=== PATIENT | female | born 1985 | race Caucasian/White ===

== ENCOUNTER → 2017-09-02 14:41 | Outpatient (CLI) | payer OTHER, MEDICAID, SELFPAY ==
--- NOTE | 2017-09-02 14:42 | US_ITS ---
US transvaginal HISTORY: ITS.REASON: Pelvic pain ORDERING PHYSICIAN: Bola Alex MD PATIENT AGE: 32 years COMPARISON: None FINDINGS: There has been a prior hysterectomy. The vaginal cuff has an unremarkable appearance. The left ovary is enlarged at 5.6 x 4.5 cm and has a somewhat lacy appearance and may be related to an endometrioma. Differential diagnosis includes hemorrhagic ovarian cyst. The right ovary measures 3.8 x 2.5 cm and contains small follicles. No cul-de-sac fluid is evident. IMPRESSION: Enlarged left ovary possibly related to a endometrioma or hemorrhagic ovarian cyst. Follow-up recommended to confirm resolution as neoplasm would be included in the differential diagnosis.
== END ==
PROVIDERS: PCP Internal Medicine Adolescent Medicine; Visit Provider Obstetrics & Gynecology
DX: R10.2 Pelvic and perineal pain (principal); N83.9 Noninflammatory disorder of ovary, fallopian tube and broad ligament, unspecified
CPT/HCPCS: 76830

== ENCOUNTER → 2017-09-09 14:01 | Outpatient (CLI) | payer SELFPAY ==
[2017-09-11 06:40] LABS: Cancer Antigen (CA) 125 6.9 U/mL (0.0-38.1)
== END ==
PROVIDERS: PCP Internal Medicine Adolescent Medicine; Visit Provider Obstetrics & Gynecology
DX: N83.9 Noninflammatory disorder of ovary, fallopian tube and broad ligament, unspecified (principal); R10.2 Pelvic and perineal pain
CPT/HCPCS: 36415; 86316

== ENCOUNTER → 2017-09-19 17:16 | Outpatient (CLI) | payer SELFPAY ==
[2017-09-19 17:20] LABS: Microscopic, Urine URINE MICROSCOPIC (MICROSCOPIC)
[2017-09-19 18:01] LABS: Appearance,Urine CLEAR (Clear); Basophils % 0.2 % (0.1-2.0); Bilirubin,Urine Negative (Negative); Blood, Urine Negative (Negative); Color,Urine YELLOW (Yellow); Eosinophils # 0.1 K/mm3 (0.0-0.4); Eosinophils % 2.4 % (0.1-12.0); Glucose,Urine (UA) Negative (Negative); Hematocrit 42.7 % (37.0-47.0); Ketones,Urine Negative (Negative); Leukocyte Esterase,Urine Negative (Negative); Lymphocytes # 1.8 K/mm3 (0.7-4.5); Lymphocytes % 42.6 K/mm3 (10-50); Mean Corpuscular HGB Conc 32.9 g/dL (31.8-35.4); Mean Corpuscular Volume 94.4 fl (81-99); Mean Platelet Volume 7.2 fl (7.4-10.4); Monocytes # 0.4 K/mm3 (0.1-1.0); Monocytes % 8.6 % (1.7-9.3); Neutrophils % 46.3 % (37.0-80.0); Nitrate,Urine Negative (Negative); Platelet Count 277 K/mm3 (142-424); Protein,Urine Negative (Negative); Red Blood Count 4.52 M/mm3 (4.20-5.40); White Blood Count 4.2 K/mm3 (4.8-10.8)
[2017-09-19 18:10] LABS: Bacteria,Urine 1+ /lpf; Mucus,Urine 3+ /lpf; Squamous Epithelial Cell,Urine Occasional #/hpf (0-5); WBC,Urine Occasional #/hpf (0-3)
[2017-09-19 20:37] LABS: Alanine Aminotransferase 61 U/L (12-78); Albumin Level 3.8 gm/dL (3.4-5.0); Albumin/Globulin Ratio 1.2 (1.1-1.8); Alkaline Phosphatase 103 U/L (46-116); Anion Gap 10.2 mEq/L (5-15); Aspartate Amino Transferase 38 U/L (15-37); Bilirubin,Total 0.3 mg/dL (0.2-1.0); Blood Urea Nitrogen 9 mg/dL (7-18); Calcium 8.6 mg/dL (8.5-10.1); Carbon Dioxide 31 mmol/L (21.0-32.0); Chloride 106 mmol/L (98-107); Creatinine,Serum 0.58 mg/dL (0.55-1.02); Estimated Glomerular Filt Rate 120 ml/min (>60); GFR (African American) 145 ML/MIN (>60); Globulin 3.2 gm/dl (1.3-3.2); Glucose 73 mg/dL (74-106); Potassium 4.2 mmoL/L (3.5-5.1); Sodium 143 mmol/L (136-145)
== END ==
PROVIDERS: PCP Internal Medicine Adolescent Medicine; Visit Provider Obstetrics & Gynecology
DX: N83.9 Noninflammatory disorder of ovary, fallopian tube and broad ligament, unspecified (principal); Z01.818 Encounter for other preprocedural examination
CPT/HCPCS: 36415; 80053; 81001; 85025

== ENCOUNTER 2017-09-23 06:20 | Inpatient (IN) | payer OTHER, SELFPAY ==
[2017-09-20 08:49] VITALS: BMI 19.1
[2017-09-23] VITALS (29 sets, daily range): BP systolic 75–110; BP diastolic 30–69; PULSE 42–81; RESP 16–25; TEMP 36.3–37.6; O2SAT 97–100
--- NOTE | 2017-09-23 07:09 | P.PN_ITS ---
[facility] Anesthesia Checklist - Structural Data Admitted From: Home Planned Operative Procedure/s: dx lap, bso Consent for Planned Operative Procedure(s) Verified: Yes Verified Documents: Surgical Consent - NPO Status Verified Time NPO: 11:23 - Airway Assessment C-Spine Mobility Assessed: Yes TMJ Mobility Assessed: Yes Dentition: Dentures-good fit - Neurological Assessment Level of Consciousness: Awake, Alert, Restless - Anesthesia Plan Anesthesia Risk discussed: Yes Anesthesia Plan: Verified ASA Class: II Anesthesia Type: General [facility] Anesthesia HX I have reviewed the patient's past medical history: Yes Medical History: Reports:: Anxiety, Cancer (hpv), Depression Denies:: Diabetes Mellitus Type 1, Diabetes Mellitus Type 2, MRSA, Seizures Other Medical History: Reports: Other Other Surgeries: Yes: Hysterectomy-Partial, Other Amputation: No Fractures: No *Family Hx:: Diabetes, Hypertension, Cancer
--- NOTE | 2017-09-23 08:15 | HMH.OPNOTE ---
Date of procedure: 09/23/17 Pre-op Diagnosis:: 1. Pelvic pain. 2. Left adnexal mass. Post-op Diagnosis:: 1 pelvic pain. 2. Bilateral ovarian cysts. Procedure performed:: 1. Exploratory laparotomy. 2. Peritoneal washings. 3. Bilateral salpingo-oophorectomy. 4. Appendectomy. Surgeon:: Bola Alex MD Broadcast Systems Engineer(s):: ABIGAIL Singh SVP RESEARCH AND STRATEGIC ANALYSIS:: Pedro Luis Downey Anesthesia: GETA Estimated blood loss (mL): 100 Operative findings:: Peritoneal fluid, bilateral ovarian cysts. Operative note:: After the patient was prepped and draped in usual fashion and general anesthesia was administered, a low Pfannenstiel incision was made across the midline, and the fat and fascia were in the usual fashion, bleeders being clamped and coagulated along the way. The peritoneum was entered with Metzenbaum scissors, and extended above and below. There were no intra-abdominal or significant pelvic adhesions. There was approximately 100 cc of serosanguineous fluid in the cul-de-sac. This was suctioned, and then peritoneal washings were carried out and submitted for cytology. The uterus was surgically absent. The left ovary was 7-8 cm in diameter and cystic. The right ovary was 4-5 cm in diameter and cystic. Both were free on their infundibulopelvic ligaments. Each adnexa was grasped with a [place] clamp, and the infundibulopelvic ligament on each side was doubly crossclamped, followed by the excision of both adnexa. These pedicles were Seth sutured, and then free tied with #1 Vicryl. There was no other pelvic pathology noted. The upper abdomen was explored and found to be normal. The appendix was identified and appeared normal. It was to be removed by prior arrangement. The appendix was grasped with a Eliza clamp, and the mesoappendix was crossclamped in several places, to obliterate the appendiceal artery. The base of the appendix was then doubly crushed, and doubly ligated with 2-0 Vicryl. The appendix was excised with a knife, and the stump coagulated with a Bovie. Irrigation was then carried out, and there was no undue bleeding. The peritoneum was grasped with 3 Dottie clamps, and closed with a running semi-locked suture of 0 Vicryl. The muscle was approximated with a running unlocked suture of 0 Vicryl. The fascia was closed with a running locked suture of #1 Vicryl. The subcutaneous fat and Suraj's fascia were closed with a running unlocked suture of 2-0 Vicryl. The skin was closed with a subcuticular suture of 3-0 Vicryl, and appropriately dressed. The urine was clear in the Capone catheter. The sponge and needle counts correct. The estimated blood loss was 100 cc. The patient tolerated the procedure well, was taken to PACU in excellent condition. She will receive Delestrogen 30 mg IM in PACU. She will be admitted postoperatively. Condition: stable Disposition: PACU Specimens:: 1. Peritoneal washings. 2. Both adnexa. 3. Appendix. Complications:: None
--- NOTE | 2017-09-23 08:18 | P.OP_ITS ---
Date of procedure: 09/23/17 Pre-op Diagnosis:: 1. Pelvic pain. 2. Left adnexal mass. Post-op Diagnosis:: 1 pelvic pain. 2. Bilateral ovarian cysts. Procedure performed:: 1. Exploratory laparotomy. 2. Peritoneal washings. 3. Bilateral salpingo-oophorectomy. 4. Appendectomy. Surgeon:: Bola Alex MD Assistant Professor Sculpture(s):: ABIGAIL Singh CROP SUPERVISOR:: Pedro Luis Downey Anesthesia: GETA Estimated blood loss (mL): 100 Operative findings:: Peritoneal fluid, bilateral ovarian cysts. Operative note:: After the patient was prepped and draped in usual fashion and general anesthesia was administered, a low Pfannenstiel incision was made across the midline, and the fat and fascia were in the usual fashion, bleeders being clamped and coagulated along the way. The peritoneum was entered with Metzenbaum scissors, and extended above and below. There were no intra- abdominal or significant pelvic adhesions. There was approximately 100 cc of serosanguineous fluid in the cul-de-sac. This was suctioned, and then peritoneal washings were carried out and submitted for cytology. The uterus was surgically absent. The left ovary was 7-8 cm in diameter and cystic. The right ovary was 4-5 cm in diameter and cystic. Both were free on their infundibulopelvic ligaments. Each adnexa was grasped with a Eliza clamp, and the infundibulopelvic ligament on each side was doubly crossclamped, followed by the excision of both adnexa. These pedicles were Seth sutured, and then free tied with #1 Vicryl. There was no other pelvic pathology noted. The upper abdomen was explored and found to be normal. The appendix was identified and appeared normal. It was to be removed by prior arrangement. The appendix was grasped with a Eliza clamp, and the mesoappendix was crossclamped in several places, to obliterate the appendiceal artery. The base of the appendix was then doubly crushed, and doubly ligated with 2-0 Vicryl. The appendix was excised with a knife, and the stump coagulated with a Bovie. Irrigation was then carried out, and there was no undue bleeding. The peritoneum was grasped with 3 Dottie clamps, and closed with a running semi-locked suture of 0 Vicryl. The muscle was approximated with a running unlocked suture of 0 Vicryl. The fascia was closed with a running locked suture of #1 Vicryl. The subcutaneous fat and Suraj's fascia were closed with a running unlocked suture of 2-0 Vicryl. The skin was closed with a subcuticular suture of 3-0 Vicryl, and appropriately dressed. The urine was clear in the Capone catheter. The sponge and needle counts correct. The estimated blood loss was 100 cc. The patient tolerated the procedure well, was taken to PACU in excellent condition. She will receive Delestrogen 30 mg IM in PACU. She will be admitted postoperatively. Condition: stable Disposition: PACU Specimens:: 1. Peritoneal washings. 2. Both adnexa. 3. Appendix. Complications:: None
--- NOTE | 2017-09-23 08:29 | HMH.ANESI ---
[facility] Anesthesia Record Part I Intake, IV Amount: 400 Estimated blood loss (mL): 10 Urine output (mL): 25 Blood Products used (#): none Blood Pressure: 90/60 SaO2: 97 Pulse Rate: 54 Respiratory Rate: 18 Temperature: 97.4 F Patient is:: Drowsy, Stable Stable to PACU at:: 08:28
--- NOTE | 2017-09-23 08:31 | P.PN_ITS ---
[facility] Anesthesia Record Part II Discharge Time: 08:58 Destination: Obstetric Gynecology Dept PACU nurse assessment reviewed?: Yes Patient Condition:: Good Anesthesia Complications:: None
--- NOTE | 2017-09-23 09:15 | SUR.OPER ---
0830 ADVERTISING WRITER gave verbal order and permission to give pt morphine 2 mg ivp q 5 min prn for pain as protocal for PACU, but did not put in pt's EMAR, order written per RN and faxed to pharmacy, morphine 2 mg ivp given at 0846 for pain 10 of 10, morphine 2 mg ivp given at 0851 for pain 10 of 10, toradol 30 mg IM given for pain 10 of 10 per verbal order as for route. At 0858 pt c/o pain 10 (plus) of 10, called OB floor after seeing order for Dilaudid 4 mg ivp q3h for severe pain, talked to Jo Durant, BETTY asking if I could give this down here r/t pt's pain level and need for transport. Jo agreed that the Dilaudid would be best for transport. Dilaudid 2 mg ivp given at 0912 and then Dilaudid 2 mg ivp given at 0918 for pain 10 of 10.
[2017-09-23 09:29] LABS: Hematocrit 38.8 % (37.0-47.0); Hemoglobin 12.7 g/dL (12.2-16.2)
--- NOTE | 2017-09-23 10:12 | PC.NURSE ---
Received report from BETTY Clancy in PACU at 0930. Pt arrived on unit at 0940 and settled into room 280. Pt alert and oriented, crying in pain. Pt medicated for pain in PACU at 0918. Pt arrives with intact low transverse dressing with serosang drainage noted on telfa. Outline of drainage marked in OR - drainage has gone past markings. Dr. Alex at bedside to speak with patient at 10:05. Pt given sips of water and thus far has tolerated well. SCUDS applied. Side rails up x 2. Call light in reach.
--- NOTE | 2017-09-23 10:25 | PC.NURSE ---
Spoke with pharmacy - no dilaudid available for OB. Called Dr. Alex and received order for Vistaril 10 mg IM x 1 now and to start pt on PO pain meds as ordered if tolerating PO. Pt is tolerating PO well at this time.
--- NOTE | 2017-09-23 10:48 | PC.NURSE ---
Spoke with Dr. Abi Desai ordered for 2 doses every 8 hours and percocet 7.5 mg every 4 hours prn ordered for pain at this time.
--- NOTE | 2017-09-23 11:15 | PC.NURSE ---
Pt continues to c/o 9/10 pain in lower abdomen. BP remains low but stable. Vistaril given IM as ordered and now medicated with percocet PO as pt has had no complaints of nausea or vomiting and tolerating clears.
--- NOTE | 2017-09-23 12:15 | PC.NURSE ---
Lunch tray brought to pt. Pt sitting up in bed requesting table placed over bed for easier access to drinks. Pt states pain slightly better at this time.
--- NOTE | 2017-09-23 12:45 | PC.NURSE ---
Pt sitting up in bed eating jello. Denies any N/V. Pt states pain getting better and is now 7/10 and tolerable. Will continue to monitor. VSS.
[2017-09-23 13:06] LABS: Microscopic,Cath URINE MICROSCOPIC (MICROSCOPIC)
[2017-09-23 13:08] LABS: Appearance,Urine/Cath SL CLOUDY (Clear); Bilirubin,Cath Negative (Negative); Blood, Urine/Cath Negative (Negative); Color,Urine/Cath YELLOW (Yellow); Glucose,Urine/Cath (UA) Negative (Negative); Ketones,Urine/Cath Negative (Negative); Leukocyte Esterase,Cath Negative (Negative); Nitrate,Cath Negative (Negative); PH,Urine/Cath 5.5 (5.0-8.5); Protein,Urine/Cath Negative (Negative); Specific Gravity, Urine/Cath 1.025 (1.005-1.030); Urobilinogen,Cath 0.2 EU/dl (0.2)
--- NOTE | 2017-09-23 13:45 | PC.NURSE ---
Pt resting quietly with eyes closed - wakens easily. States pain continues to improve slowly. Moving self in bed side to side as needed for comfort. Continues to tolerate PO without c/o N/V.
--- NOTE | 2017-09-23 13:58 | P.CONPHA_ITS ---
[facility] Pharmacy VTE Monitoring - Patient Demographics Admission date: 09/23/17 Report Date: 09/23/17 Time: 13:57 Allergies/Adverse Reactions: Patient Allergies sulfamethoxazole [From BACTRIM] Allergy (Severe, Verified 09/23/17 06:40) I-HIVES trimethoprim [From BACTRIM] Allergy (Severe, Verified 09/23/17 06:40) I-HIVES codeine [CODEINE] Allergy (Intermediate, Verified 09/23/17 06:40) I-HIVES latex [LATEX] Allergy (Intermediate, Verified 09/23/17 06:40) I-RASH Height: 1.6 m Weight: 48.988 kg - VTE Risk Labs: VTE Related Lab Results Hgb 12.7 g/dL (12.2-16.2) 09/23/17 09:20 Hct 38.8 % (37.0-47.0) 09/23/17 09:20 Was VTE Risk Assessment Performed: Yes VTE Score: 0 VTE Risk Level: Very Low Risk - Prophylaxis VTE Prophylaxis Ordered?: Yes Types of VTE Prophylaxis: IPCS Knee High Location of Applied Device: Bilateral Lower Extremeties - VTE Diagnosis Confirmed Treatment or plan recommended: Continue Current Treatment
[2017-09-23 14:36] LABS: Bacteria,Urine/Cath 2+ /lpf
--- NOTE | 2017-09-23 15:19 | PC.NURSE ---
Pt c/o pain getting worse - medicated with percocet PO as ordered for pain.
--- NOTE | 2017-09-23 15:21 | PC.NURSE ---
Dr. Alex called to check on patient - report given. No new orders at this time. Discussed mathew order to be discontinued in the morning - per Dr. Alex, OK to take out mathew tonight if patient is complaining about being uncomfortable with it in, otherwise, mathew to be taken out tomorrow morning as ordered.
--- NOTE | 2017-09-23 15:45 | PC.NURSE ---
Pt sitting up in bed - still able to turn and re-position self well. Full reassessment done and no changes from previous assessment. Low transverse dressing remains intact with serosang drainage noted and marked. Pt changed out of bear hugger OR gown to regular hospital gown. Bed sheets straightened. Denies any needs at this time. No family at bedside. Father and boyfriend at bedside briefly this morning after pt came to floor. Stayed approximately 45 minutes and then left. Pt states she will have help at home after discharge.
--- NOTE | 2017-09-23 18:40 | PC.NURSE ---
All charting and pt care completed by Ashley Lozano RN this shift has been completed under my direct supervision.
--- NOTE | 2017-09-23 19:12 | PC.NURSE ---
Report given to Leydi Erickson RN
--- NOTE | 2017-09-23 19:30 | PC.NURSE ---
REPORT RECEIVED FROM BETTY RAMIREZ.
--- NOTE | 2017-09-23 20:45 | PC.NURSE ---
AT PT'S BS TO PERFORM ASSESSMENT. INTRODUCED SELF TO PT AND PLAN OF CARE EXPLAINED. PT VERBALIZED UNDERSTANDING. PT VERY DROWSY AND APPEARED TO BE SLEEPING UPON ENTERING ROOM. PT REQUESTS THAT ALL HER PAIN MEDICATION (SCHEDULED AND PRN) BE GIVEN WHEN TIME ALLOWS. PT NOW RATES PAIN AT 7/10 ON PAIN SCALE. TORADOL 30MG IV GIVEN. F/C PATENT TO BS DRAIN. V/S WNL. IV INFUSING WELL (LR AT 125/HR) IN RT HAND. LTV INCISION WITH SURGICAL TELFA / TEGADERM DRESSING INTACT. MOD AMT OF SHADOWING DRAINAGE. TOLERATING IPCS WELL. PT'S SIG OTHER AT BS. INSTRUCTED PT TO RING FOR ANY ASSISTANCE NEEDED. VERBALIZED UNDERSTANDING.
--- NOTE | 2017-09-23 21:15 | PC.NURSE ---
CHECKED ON PT FOR PAIN RELIEF OF MEDICATION. PT SLEEPING SOUNDLY. SIG OTHER ASLEEP AT BS IN SLEEP CHAIR.
--- NOTE | 2017-09-23 23:50 | PC.NURSE ---
CHECKED ON PT'S PAIN RELIEF FROM PERCOCET. PT SLEEPING SOUNDLY UPON ENTERING ROOM. SIG OTHER ASLEEP IN CHAIR AT BS.
[2017-09-24] VITALS (11 sets, daily range): BP systolic 87–105; BP diastolic 46–68; PULSE 60–74; RESP 16–18; TEMP 36.8–37.3; O2SAT 97–100
--- NOTE | 2017-09-24 04:10 | PC.NURSE ---
REASSESSMENT FOR PAIN MEDICATIONS GIVEN AT 0330 (TORADOL AND PERCOCET)... PT SLEEPING SOUNDLY AT THIS TIME.
--- NOTE | 2017-09-24 04:33 | PC.NURSE ---
PT HAS RESTED WELL THROUGHOUT THE NIGHT. HAS REQUESTED THAT PAIN MEDICATION BE GIVEN WHEN ALLOWED. STEVEN CATH REMAINS ANCHORED TO BSD. YELLOW URINE NOTED IN DRAINAGE BAG. NO NEW DRAINAGE NOTED TO LTV INCISION DRESSING. CONTINUES USING SCDS WHILE IN BED. HAS NOT USED INCENTIVE SPIROMETER THUS FAR. V/S W/N/L... TOLERATING LIQUID PO's WELL. BS HYPOACTIVE ALL QUADS X 4. LUNGS CLEAR, BUT DIMINISHED THROUGHOUT.
--- NOTE | 2017-09-24 06:07 | HMH.ACPN2 ---
Internal Medicine - PN: Subj *Date: 09/24/17 *Time: 06:07 Interval history: This is postop day #1. The patient is afebrile. Vital signs stable. Wound clean. Abdomen soft. Hemoglobin 12.7 g. Capone has been removed. Diet will be advanced. Impression: Stable. Exam Vital signs and Labs for Last 24 Hours: Temp Pulse Resp BP Pulse Ox 98.8 F 74 16 100/68 98 09/24/17 00:04 09/24/17 00:04 09/24/17 00:04 09/24/17 00:04 09/24/17 00:04 Laboratory Results - last 24 hr 09/23/17 07:20: Urine Color Yellow, Urine Appearance Sl cloudy, Urine pH 5.5, Ur Specific [place] 1.025, Urine Protein Negative, Urine Glucose (UA) Negative, Urine Ketones Negative, Urine Blood Negative, Urine Nitrate Negative, Urine Bilirubin Negative, Urine Urobilinogen 0.2, Ur Leukocyte Esterase Negative, Urine WBC 3-5, Ur Squamous Epith Cells 3-5, Urine Bacteria 2+ A 09/23/17 09:20: Hgb 12.7, Hct 38.8 I & O for Last 24 hours: Intake & Output 09/21/17 09/22/17 09/23/17 09/24/17 11:59 11:59 11:59 11:59 Intake Total 520 / 520 1533 / 1533 Output Total 550 / 550 Balance 520 / 520 983 / 983 Weight 108 lb
--- NOTE | 2017-09-24 07:50 | PC.NURSE ---
REPORT GIVEN TO BETTY ÁLVAREZ.
--- NOTE | 2017-09-24 08:40 | PC.NURSE ---
PT HAS A LOW TRANSVERSE INCISION WITH TELFA AND TEGADERM IN PLACE. SMALL AMOUNT OF OLD SERO SANG DRAINAGE NOTED TO DRESSING. NO VAGINAL BLEEDING NOTED AT THIS TIME.
--- NOTE | 2017-09-24 09:08 | PC.NURSE ---
PT SITTING UP IN BED. PT REQUESTING SOMETHING FOR PAIN. SCHEDULED TORADOL GIVEN. NO OTHER NEEDS VOICED. IV PATENT. CALL LIGHT IN REACH.
--- NOTE | 2017-09-24 11:12 | PC.NURSE ---
PT SITTING UP IN BED DRINKING COFFEE. NO NEEDS VOICED. IV PATENT. CALL LIGHT IN REACH.
--- NOTE | 2017-09-24 12:00 | PC.NURSE ---
PT REQUESTING SOMETHING FOR PAIN AT THIS TIME. PAIN MEDS NOT DUE AT THIS TIME. WILL CALL AND ADDRESS WITH DR NUNEZ. NO OTHER NEEDS VOICED.
--- NOTE | 2017-09-24 12:03 | PC.NURSE ---
DR NUNEZ CALLED REPORT GIVEN PT RECEIVED TORADOL THIS MORNING AT 9:08, PERCOCET 7.5/325 GIVEN AT 10:15. PT REQUESTING SOMETHING ELSE FOR PAIN. VSS THIS MORNING WAS 08:40AM 87/48, 09:00 105/4, 09:50 95/47. HR 65-7. ORDERS RECEIVED TO GIVE PERCOCET 5/325MG PO ONE TIME DOSE NOW. R/V
--- NOTE | 2017-09-24 12:27 | PC.NURSE ---
DR NUNEZ CALLED REPORT GIVEN. PT REQUESTING SOMETHING TO EAT. BOWEL SOUNDS HYPOACTIVE. ORDERS RECEIVED TO INCREASE PT TO FULL LIQUID DIET. R/V
--- NOTE | 2017-09-24 12:30 | PC.NURSE ---
PT ASSISTED TO BATHROOM AND BACK TO BED. PT DECLINED TO SIT UP IN CHAIR AT THIS TIME. PT VOIDING W/O DIFFICULTY. SCANT AMOUNT OF VAGINAL BLEEDING NOTED TO TIFFANIE-PAD. WARM BLANKET APPLIED TO PT'S BACK. NO OTHER NEEDS VOICED.
--- NOTE | 2017-09-24 13:30 | PC.NURSE ---
PT SITTING UP IN BED. NO NEEDS VOICED. CALL LIGHT IN REACH. PT AWAITING HER FULL LIQUID TRAY. WILL CALL DIETARY.
--- NOTE | 2017-09-24 13:55 | PC.NURSE ---
REPORT GIVEN TO Emilia TAMEZ RN
--- NOTE | 2017-09-24 18:30 | PC.NURSE ---
DR. NUNEZ NOTIFIED OF PATIENT'S PAIN IS STILL RANGING A 6/10 ON NUMBER PAIN SCALE. HE IS AWARE OF THIS AND NO OTHER NEW ORDERS AT THIS TIME.
--- NOTE | 2017-09-24 18:40 | PC.NURSE ---
PATIENT RESTING IN BED, PAIN DOESNT REPORT COMPLETE PAIN RELIEF AFTER MEDICATING HER, SHE REFUSED HER TORADOL THIS AFTERNOON STATED THAT IS DIDN'T HELP ANY. DR NUNEZ WAS NOTIFIED OF THIS WHEN HE WAS ROUNDING ON ANOTHER PATIENT. NO NEW MEDICATION ORDERS GIVEN AT THIS TIME. PATIENT TOLERATING HER FULL DIET, NO NAUSEA, SHE STILL HAS HYPOACTIVE BOWEL SOUNDS IN ALL QUADS. PATIENT REPORTS PASSING FLATUS, NO BM NOTED OF THIS TIME. IVF'S STILL INFUSING AT 125ML/HR IN HER RIGHT HAND. PATIENT'S VS ARE AFEBRILE AND STABLE.
--- NOTE | 2017-09-24 19:08 | PC.NURSE ---
REPORT GIVEN TO Oriana OLIVA RN.
--- NOTE | 2017-09-24 19:40 | PC.NURSE ---
NOTIFIED OF PT C/O GAS.ORDERS FOR SOME MYLICON 160MG EVERY 4 HOURS PRN FOR GAS
--- NOTE | 2017-09-24 21:20 | PC.NURSE ---
REMOVED DRESSING,OLD SEROSANG.DRAINAGE NOTED.CLEANSED WITH HALF STRENGTH NS AND PEROXIDE.INCISION WELL APPROXIMATED.COVERED WITH TELFA AND TEGADERM.PT TOLERATED WELL.PT REFUSING TO SHOWER OR TAKE A BASIN BATH AND REFUSING BED LINENS TO BE CHANGED,REPORTS THEY HAVE BEEN CHANGED TWICE ALREADY SINCE SHE WAS ADMITED
--- NOTE | 2017-09-24 23:00 | PC.NURSE ---
PT AMBULATING AROUND IN KEMP AROUND NURSES STATION,REPORTS HER BACK WAS HURTING SO SHE DECIDED TO WALK,NO NEEDS OR CONCERNS VOICED
[2017-09-25] VITALS (10 sets, daily range): BP systolic 94–108; BP diastolic 46–61; PULSE 65–72; RESP 16–18; TEMP 36.8–37.2; O2SAT 98–99
--- NOTE | 2017-09-25 | PC.NURSE ---
UPON ENTERING ROOM PT WAS SITTING UP IN BED LOOKING AT PHONE.WATCHING T.V.SEEMED TO BE DOING FINE,WHEN ASKED IF SHE STILL HAD PAIN SHE SAID YES-TOLERABLE NO NEED FOR ANYMORE PAIN MEDICINE AT THIS TIME.PT REPORTS STILL HAS GAS PAINS.WILL MEDICATE WITH MORE MYLICON.BOWEL SOUNDS A LITTLE MORE NORMAL AT THIS TIME.WILL CONTINUE TO MONITOR
--- NOTE | 2017-09-25 04:10 | PC.NURSE ---
NO ACUTE CHANGES FROM PREVIOUS ASSESSMENT.LUNGS CLEAR THROUGHOUT,RESP.EVEN AND UNLABORED.BOWEL SOUNDS NORMAL,PT REPORTS PASSING A LITTLE GAS.NO DRAINAGE TO DRESSING AFEBRILE.VOIDING WITHOUT DIFF.
--- NOTE | 2017-09-25 07:24 | PC.NURSE ---
REPORT GIVEN TO HENRIRN
--- NOTE | 2017-09-25 10:08 | HMH.ACPN2 ---
Internal Medicine - PN: Subj *Date: 09/25/17 *Time: 10:08 (This is postop day #2. The patient is afebrile. Vital signs stable. Wound clean. Abdomen soft. Hemoglobin 12.7 g. She is eating and ambulating. Minimal flatus. Plan is to advance her diet. Probably home tomorrow.) Exam Vital signs and Labs for Last 24 Hours: Temp Pulse Resp BP Pulse Ox 98.8 F 72 18 99/59 99 09/25/17 08:41 09/25/17 08:41 09/25/17 08:41 09/25/17 08:41 09/25/17 08:41 I & O for Last 24 hours: Intake & Output 09/22/17 09/23/17 09/24/17 09/25/17 11:59 11:59 11:59 11:59 Intake Total 520 / 520 1933 / 1933 1100 / 1100 Output Total 1900 / 1900 1400 / 1400 Balance 520 / 520 33 / 33 -300 / -300 Weight 108 lb Microbiology Reports for the Last 24 Hours: Microbiology 09/23/17 07:20 Urine,Catheterized Urine Culture - Preliminary NO GROWTH AFTER 24 HOURS
--- NOTE | 2017-09-25 16:57 | PC.NURSE ---
PATIENT RESTING IN BED, PAIN BEING CONTROLLED WITH PERCOCETS 7.5/325MG PO Q 4HOURS, LOW TRANSVERSE SITE REMAINS C/D/I. BOWEL SOUNDS HAVE RETURNED IN ALL QUADS, PASSING FLATUS, DENIES HAVING A BM YET. LUNGS ARE CTA. PATIENT TOLERATING HER REGULAR DIET WELL, PLANS ARE FOR HER TO GO HOME POSSIBLY IN THE AM.
--- NOTE | 2017-09-25 19:16 | PC.NURSE ---
REPORT GIVEN TO KEHINDE PEGUERO RN
--- NOTE | 2017-09-25 20:37 | PC.NURSE ---
patient sitting up in bed. iv wrapped so patient can get in the shower. no complaints at this time.
--- NOTE | 2017-09-25 21:51 | PC.NURSE ---
AFTER SHOWER PATIENT REQUESTED TO HAVE DRESSING ON ABDOMEN REPLACED STATING IT HELPED SOME WITH THE PAIN. INCISION CLEANED, AND LOOKS GOOD AT THIS TIME. TELFA AND TEGADERM PLACED OVER SITE PER PATIENT REQUEST. PATIENT LAUGHING WITH SIGNIFICANT OTHER IN ROOM, STATING LAUGHING WAS CAUSING HER SOME DISCOMFORT BUT WAS TOLERABLE. PATIENT MEDICATED SHORTLY AFTER SHOWER,WILL CONTINUE TO ASSESS PATIENT AND PAIN.
[2017-09-26 05:19] VITALS: BP 97/49; PULSE 68; RESP 16; TEMP 36.6; O2SAT 100
--- NOTE | 2017-09-26 06:27 | HMH.ACPN2 ---
Internal Medicine - PN: Subj *Date: 09/26/17 *Time: 06:27 Interval history: This is postop day #3. The patient is afebrile. Vital signs stable. Wound clean. Abdomen soft. Passing flatus. Hemoglobin 12.7 g. She will be discharged today. Exam Vital signs and Labs for Last 24 Hours: Temp Pulse Resp BP Pulse Ox 97.8 F 68 16 97/49 100 09/26/17 05:19 09/26/17 05:19 09/26/17 05:19 09/26/17 05:19 09/26/17 05:19 I & O for Last 24 hours: Intake & Output 09/23/17 09/24/17 09/25/17 09/26/17 11:59 11:59 11:59 11:59 Intake Total 520 / 520 1933 / 1933 1100 / 1100 2578 / 2578 Output Total 1900 / 1900 1400 / 1400 Balance 520 / 520 33 / 33 -300 / -300 2578 / 2578 Weight 108 lb Microbiology Reports for the Last 24 Hours: Microbiology 09/23/17 07:20 Urine,Catheterized Urine Culture - Final NO GROWTH AFTER 48 HOURS
--- NOTE | 2017-09-26 06:27 | HMH.DCSUM ---
General - General Admission date: 09/23/17 Discharge date: 09/26/17 (This 32-year-old white female was admitted for definitive treatment of pelvic pain and a left adnexal mass. She has had a previous hysterectomy. On the date of admission, she was taken to the operating room, where she underwent an exploratory laparotomy with peritoneal washings and bilateral salpingo-oophorectomy, along with incidental appendectomy. Postoperatively, the patient is done well. Her hemoglobin is 12.7 g. She is eating and ambulating, and is passing flatus. Her wound is clean. Her abdomen is soft. She is discharged home on the third postoperative day on Percocet 5/325 (#30), 1 p.o. every 6 hours as needed pain. She received Delestrogen 30 mg IM in PACU on 09/23/17. She is given appropriate instructions as to diet, exercise, and wound care, and she is to return the office in 2 weeks for follow-up.) Objective Vital signs: Temp Pulse Resp BP Pulse Ox 97.8 F 68 16 97/49 100 09/26/17 05:19 09/26/17 05:19 09/26/17 05:19 09/26/17 05:19 09/26/17 05:19 Discharge Plan - Patient Discharge Instructions - Follow up Plan Home Medications: Home Medications Medication Instructions Recorded Confirmed Type buprenorphine 8 mg-naloxone 2 mg 1 film SUBLINGUAL Q24H 08/23/17 09/24/17 History sublingual film gabapentin 800 mg tablet 800 mg PO TID 08/23/17 09/23/17 History Prescriptions/Medication Reconciliation: No Action buprenorphine 8 mg-naloxone 2 mg sublingual film 1 film SUBLINGUAL Q24H gabapentin 800 mg tablet 800 mg PO TID
--- NOTE | 2017-09-26 07:17 | PC.NURSE ---
REPORT GIVEN TO LISA SIMPSON RN
[2017-09-26 07:58] VITALS: BP 110/69; PULSE 79; RESP 18; TEMP 36.7; O2SAT 100
--- NOTE | 2017-09-26 08:00 | PC.NURSE ---
PT IS SITTING UP IN THE BED EATING BREAKFAST AT THIS TIME, VSS, INCISION IS OPEN TO AIR, NO DRAINAGE, PT IS GETTING OOB TO AMBULATE TO THE BATHROOM AND AROUND THE ROOM. STATES SHE IS READY TO GO HOME.
== END 2017-09-26 09:12 | disposition home or self-care (01) | DRG 743 ==
LOC: 2ND 08:29 → OB 09:28
PROVIDERS: Admitting Provider Obstetrics & Gynecology; Visit Provider Obstetrics & Gynecology
PROC: 0UT20ZZ Resection of Bilateral Ovaries, Open Approach (ICD-10-PCS; CPT 49000; principal; 2017-09-23 07:30)
DX: N83.201 Unspecified ovarian cyst, right side (principal); R10.2 Pelvic and perineal pain; N83.202 Unspecified ovarian cyst, left side
CPT/HCPCS: 58720; 36415; 81001; 85014; 85018; 87086; 96372; 96374; J0131; J2405; J2710

== ENCOUNTER → 2019-05-28 16:24 | Outpatient (CLI) | payer OTHER, SELFPAY ==
[2019-05-28 17:25] LABS: Basophils % 0.5 % (0.1-2.0); Eosinophils % 1.2 % (0.1-12.0); Hematocrit 41.9 % (37.0-47.0); Hemoglobin 13.7 g/dL (12.2-16.2); Lymphocytes # 1.6 K/mm3 (0.7-4.5); Lymphocytes % 43.1 % (10-50); Mean Corpuscular HGB Conc 32.6 g/dL (31.8-35.4); Mean Corpuscular Hemoglobin 30.7 pg (27.0-31.2); Mean Corpuscular Volume 93.9 fl (81-99); Mean Platelet Volume 7.3 fl (7.4-10.4); Monocytes # 0.2 K/mm3 (0.1-1.0); Monocytes % 4.9 % (1.7-9.3); Neutrophils # 1.9 K/mm3 (1.8-7.8); Neutrophils % 50.4 % (37.0-80.0); Platelet Count 318 K/mm3 (142-424); Red Blood Count 4.46 M/mm3 (4.20-5.40); Red Cell Distribution Width 12.6 % (11.5-17.5); White Blood Count 3.7 K/mm3 (4.8-10.8)
[2019-05-28 18:38] LABS: Alanine Aminotransferase 42 U/L (12-78); Albumin Level 3.6 gm/dL (3.4-5.0); Albumin/Globulin Ratio 1.1 (1.1-1.8); Alkaline Phosphatase 111 U/L (46-116); Anion Gap 11.2 mEq/L (5-15); Aspartate Amino Transferase 24 U/L (15-37); Bilirubin,Total 0.4 mg/dL (0.2-1.0); Blood Urea Nitrogen 9 mg/dL (7-18); Carbon Dioxide 28 mmol/L (21.0-32.0); Chloride 106 mmol/L (98-107); Estimated Glomerular Filt Rate 141 ml/min (>60); Free T4 (Free Thyroxine) 1.13 ng/dl (0.76-1.46); GFR (African American) 171 ML/MIN (>60); Globulin 3.4 gm/dl (1.3-3.2); Glucose 98 mg/dL (74-106); Potassium 4.2 mmoL/L (3.5-5.1); Sodium 141 mmol/L (136-145); Thyroid Stimulating Hormone 0.51 uIU/ml (0.358-3.740)
[2019-05-30 18:15] LABS: Vitamin B12 579 pg/mL (232-1245)
[2019-05-30 18:16] LABS: Vitamin D 25 Hydroxy 32.9 ng/mL (30.0-100.0)
[2019-06-02 22:14] LABS: HCV Genotype Charge YES; Hepatitis C Genotype 1a (.)
== END ==
PROVIDERS: Visit Provider Nurse Practitioner Family
DX: B18.2 Chronic viral hepatitis C (principal); G89.29 Other chronic pain
CPT/HCPCS: 36415; 80053; 82607; 82652; 84439; 84443; 85025; 87522; 87902

== ENCOUNTER → 2020-11-08 17:32 | Outpatient (CLI) | payer OTHER, SELFPAY ==
[2020-11-08 19:26] LABS: Benzodiazepines Screen,Urine Negative ng/ml (<200)
[2020-11-08 19:27] LABS: Amphetamine/Metha Screen,Urine Positive ng/ml (<1000)
[2020-11-08 19:28] LABS: Barbiturates Screen,Urine Negative ng/ml (<200); Cannabinoid Screen,Urine Negative ng/ml (<50)
[2020-11-08 19:29] LABS: Cocaine Screen,Urine Negative ng/ml (<300); Methadone Screen,Urine Negative ng/ml (<300)
[2020-11-08 19:30] LABS: Opiate Screen,Urine Negative ng/ml (<300)
[2020-11-08 19:31] LABS: Phencyclidine Screen,Urine Negative ng/ml (<25)
== END ==
PROVIDERS: Visit Provider Physician Assistant
DX: Z79.899 Other long term (current) drug therapy (principal)
CPT/HCPCS: 80305

== ENCOUNTER → 2020-11-12 12:56 | Outpatient (CLI) | payer OTHER, SELFPAY ==
[2020-11-12 13:39] LABS: HCG Qualitative, Serum Negative (Negative)
[2020-11-12 13:54] LABS: Coronavirus 19 IgG Antibody Negative (Negative); Coronavirus 19 IgM Antibody Negative (Negative)
== END ==
PROVIDERS: Visit Provider Internal Medicine Gastroenterology
DX: Z01.812 Encounter for preprocedural laboratory examination (principal); Z11.52 Encounter for screening for COVID-19; Z13.810 Encounter for screening for upper gastrointestinal disorder; Z12.11 Encounter for screening for malignant neoplasm of colon
CPT/HCPCS: 36415; 84703; 86328

== ENCOUNTER 2021-02-21 18:10 | Emergency (ER) | payer SELFPAY ==
[2021-02-21 18:12] VITALS: BP 100/62; PULSE 85; RESP 16; TEMP 36.8; O2SAT 97; BMI 18.4
[2021-02-21 18:35] VITALS: BP 118/81; PULSE 82; RESP 16; TEMP 36.5; O2SAT 99; BMI 18.4
--- NOTE | 2021-02-21 18:57 | HMH.EDUTC ---
[facility] [place]: [place] problem Disposition: Home, Self-Care Condition on Discharge: Good Instructions: DI for Eye Pain Additional Instructions: Over the counter Motrin and/or Tylenol may help with pain in eye Follow up in the morning with Dr Carrasco at [facility] make sure to let them know that we spoke with him and he wanted you to follow up there in the morning Return if needed Wear patch tonight to let eye rest Straight to ER if any life threatening symptoms Referrals: Camron Sethi MD [Primary Care Provider] - As needed [facility] [Other] (Call in the morning or be at the office at 8am) Forms: Work/School Release Time of Disposition: 19:16 Medical Decision Making - Nathan Inquiry Pt receiving controlled substance: No Nathan was queried for this patient: No Vital Signs: 02/21/21 18:12 02/21/21 18:35 02/21/21 19:24 Temperature 98.2 F 97.7 F 97.7 F Temperature Source Oral Oral Oral Pulse Rate 82 Pulse Rate [Right] 85 82 Respiratory Rate 16 16 16 Blood Pressure 118/81 Blood Pressure [Right Arm] 100/62 L 118/81 Blood Pressure Mean [Right Arm] 74 93 Blood Pressure Source Automatic Cuff Blood Pressure Source [Right Arm] Automatic Cuff Blood Pressure Position Sitting Blood Pressure Position [Right Arm] Supine 02 Sat by Pulse Oximetry 97 99 Oxygen Delivery Method Room Air Room Air Room Air Orders (Tests/Meds): ED MEDICATIONS Discontinued Medications Generic Name Dose Route Start Last Admin Trade Name Freq PRN Reason Stop Dose Admin Erythromycin 0.5 gm 02/21/21 19:55 Erythromycin Base 1 Gm Oint...G. OP 02/21/21 19:56 ONCE ONE Eye Irrigation Solution 120 ml 02/21/21 19:55 Eye Wash Irrigation Soln 118ml Bottle OP 02/21/21 19:56 ONCE ONE - Physician Consults Physician Consulted: Dr Carrasco Time: 19:00 Reason -: Opthalmology Eval/Care Comment/Response: Spoke with Dr Carrasco and informed him of patient complaint and symptoms and patient working in fiberglass He advised if small particles of fiberglass in eye may not see due to clear in nature, advised to place erythromycin ointment in eye patch it and have her come to the office first thing in the morning for further evaluation and examination and will assess her with magnification and patient agreed [facility] [place] - General Stated complaint: Left eye pain Time Seen by Provider: 02/21/21 18:57 Mode of Arrival: Ambulatory Source of Information: Patient Limitations: No Limitations Description of Symptoms (Recalled from Triage Doc. by RN): eye pain HEENT Symptoms (Recalled from RN notes): Yes Resp Symptoms (Recalled from RN notes): No Skin Symptoms (Recalled from RN notes): No MS Symptoms (Recalled from RN notes): No Functional Status (Recalled from RN notes): na - History of Present Illness Provider Complaint: Patient states that she works in [employer] at her job, states that she was having itching feeling in her left eye yesterday when she rubbed her eye States after that she felt like it scratched her eye State that ever since she has been having pain and noticed it looked like a busted blood vessel in her eye States that this evening the eye was still watering and hurting her so she came in States that she has tried several over the counter drops but it hasnt helped and feels like something may be in there - Related Data Home Medications Medication Instructions Recorded Confirmed buprenorphine 8 mg-naloxone 2 mg 0.75 film SUBLINGUAL QODP each 03/17/18 11/08/20 sublingual film gabapentin 800 mg tablet 400 mg PO TID tab 03/17/18 11/08/20 Previous Rx's Medication Instructions Recorded estradiol 2 mg tablet 2 mg PO DAILY 30 Days #30 tab 05/18/19 Allergies Allergy/AdvReac Type Severity Reaction Status Date / Time sulfamethoxazole Allergy Severe I-HIVES Verified 11/08/20 14:58 [From BACTRIM] trimethoprim [From BACTRIM] Allergy Severe I-HIVES Verifie
[2021-02-21 19:24] VITALS: BP 118/81; PULSE 82; RESP 16; TEMP 36.5; O2SAT 99
== END 2021-02-21 19:23 | disposition home or self-care (01) ==
LOC: ER 18:22 → UTC 18:22
PROVIDERS: Emergency Provider Nurse Practitioner; PCP Emergency Medicine
DX: T15.12XA Foreign body in conjunctival sac, left eye, initial encounter (principal); F41.8 Other specified anxiety disorders; Z88.2 Allergy status to sulfonamides; Z88.5 Allergy status to narcotic agent; Z91.040 Latex allergy status
CPT/HCPCS: 99202; G0463

== ENCOUNTER → 2021-05-02 19:12 | Outpatient (CLI) | payer SELFPAY ==
[2021-05-02 22:01] LABS: Amphetamine/Metha Screen,Urine Positive ng/ml (<1000)
[2021-05-02 22:02] LABS: Barbiturates Screen,Urine Negative ng/ml (<200)
[2021-05-02 22:03] LABS: Benzodiazepines Screen,Urine Negative ng/ml (<200); Cannabinoid Screen,Urine Negative ng/ml (<50)
[2021-05-02 22:04] LABS: Cocaine Screen,Urine Negative ng/ml (<300)
[2021-05-02 22:05] LABS: Methadone Screen,Urine Negative ng/ml (<300); Opiate Screen,Urine Negative ng/ml (<300)
[2021-05-02 22:06] LABS: Phencyclidine Screen,Urine Negative ng/ml (<25)
== END ==
PROVIDERS: Visit Provider Emergency Medicine
DX: Z79.899 Other long term (current) drug therapy (principal); R82.90 Unspecified abnormal findings in urine
CPT/HCPCS: 80305; 87086; 87088; 87186

== ENCOUNTER → 2021-07-05 19:10 | Outpatient (CLI) | payer BC, SELFPAY ==
[2021-07-05 20:52] LABS: Benzodiazepines Screen,Urine Negative ng/ml (<200)
[2021-07-05 20:53] LABS: Amphetamine/Metha Screen,Urine Positive ng/ml (<1000); Barbiturates Screen,Urine Negative ng/ml (<200)
[2021-07-05 20:54] LABS: Cannabinoid Screen,Urine Negative ng/ml (<50); Cocaine Screen,Urine Negative ng/ml (<300)
[2021-07-05 20:55] LABS: Methadone Screen,Urine Negative ng/ml (<300)
[2021-07-05 20:56] LABS: Opiate Screen,Urine Negative ng/ml (<300); Phencyclidine Screen,Urine Negative ng/ml (<25)
== END ==
PROVIDERS: Visit Provider Emergency Medicine
DX: F90.9 Attention-deficit hyperactivity disorder, unspecified type (principal)
CPT/HCPCS: 80305

== ENCOUNTER → 2021-10-02 17:12 | Outpatient (CLI) | payer SELFPAY ==
[2021-10-02 18:51] LABS: Amphetamine/Metha Screen,Urine Positive ng/ml (<1000)
[2021-10-02 18:54] LABS: Benzodiazepines Screen,Urine Negative ng/ml (<200); Cannabinoid Screen,Urine Negative ng/ml (<50)
[2021-10-02 18:55] LABS: Cocaine Screen,Urine Negative ng/ml (<300)
[2021-10-02 18:57] LABS: Phencyclidine Screen,Urine Negative ng/ml (<25)
[2021-10-02 19:25] LABS: Opiate Screen,Urine Negative ng/ml (<300)
[2021-10-02 20:36] LABS: Barbiturates Screen,Urine Negative ng/ml (<200); Methadone Screen,Urine Negative ng/ml (<300)
== END ==
PROVIDERS: Visit Provider Emergency Medicine
DX: Z79.899 Other long term (current) drug therapy (principal)
CPT/HCPCS: 80305

== ENCOUNTER → 2021-11-29 16:00 | Outpatient (CLI) | payer SELFPAY ==
[2021-11-29 13:57] LABS: Amphetamine/Metha Screen,Urine Negative ng/ml (<1000)
[2021-11-29 13:58] LABS: Barbiturates Screen,Urine Negative ng/ml (<200)
[2021-11-29 13:59] LABS: Benzodiazepines Screen,Urine Negative ng/ml (<200); Cannabinoid Screen,Urine Negative ng/ml (<50)
[2021-11-29 14:01] LABS: Cocaine Screen,Urine Negative ng/ml (<300); Methadone Screen,Urine Negative ng/ml (<300)
[2021-11-29 14:02] LABS: Opiate Screen,Urine Negative ng/ml (<300)
[2021-11-29 14:03] LABS: Phencyclidine Screen,Urine Negative ng/ml (<25)
== END ==
PROVIDERS: Visit Provider Emergency Medicine
DX: Z79.899 Other long term (current) drug therapy (principal)
CPT/HCPCS: 80305

== ENCOUNTER → 2022-01-26 14:02 | Outpatient (CLI) | payer SELFPAY ==
[2022-01-26 13:33] LABS: Opiate Screen,Urine Negative ng/ml (<300)
[2022-01-26 13:34] LABS: Phencyclidine Screen,Urine Negative ng/ml (<25)
[2022-01-26 13:53] LABS: Benzodiazepines Screen,Urine Negative ng/ml (<200)
[2022-01-26 13:54] LABS: Amphetamine/Metha Screen,Urine Positive ng/ml (<1000)
[2022-01-26 13:55] LABS: Barbiturates Screen,Urine Negative ng/ml (<200); Cannabinoid Screen,Urine Negative ng/ml (<50)
[2022-01-26 13:56] LABS: Cocaine Screen,Urine Negative ng/ml (<300)
[2022-01-26 13:57] LABS: Methadone Screen,Urine Negative ng/ml (<300)
== END ==
PROVIDERS: PCP Emergency Medicine; Visit Provider Emergency Medicine
DX: R35.0 Frequency of micturition (principal); B96.20 Unspecified Escherichia coli [E. coli] as the cause of diseases classified elsewhere; Z79.899 Other long term (current) drug therapy
CPT/HCPCS: 80305; 87086; 87088; 87186

== ENCOUNTER 2022-02-07 18:51 | Emergency (ER) | payer SELFPAY ==
[2022-02-07 18:55] VITALS: BP 132/64; PULSE 107; RESP 18; TEMP 37.4; O2SAT 97; BMI 18.6
--- NOTE | 2022-02-07 19:11 | HMH.EDUTC ---
[facility] [place] Disposition Clinical Impression: COVID-19 Disposition: Home, Self-Care Condition on Discharge: Good Instructions: DI for COVID-19 (Suspected or Confirmed ), Preventing the Spread of Coronavirus Discharge Instructions Additional Instructions: Drink plenty of fluids. Take tylenol or ibuprofen for pain or fever. Take the medications as directed. Follow up with your regular doctor. GO TO THE ER FOR ANY WORSENING SYMPTOMS Quarantine until you know the results of your covid-19 test. Notify your school or workplace of your results and follow their instructions regarding return to work/school. Prescriptions: Ondansetron [Zofran 4mg ODT] 4 mg PO Q8HP PRN #12 tab PRN Reason: Nausea Transmission Status: Received by [facility] Benzonatate [Benzonatate 100mg cap] 100 mg PO TIDP PRN #30 cap PRN Reason: Cough Transmission Status: Received by [facility] methylPREDNISolone [Medrol] 4 mg PO DIRECTED 6 Days #21 packet Transmission Status: Received by [facility] Referrals: Camron Sethi MD [Primary Care Provider] - Forms: Work/School Release Time of Disposition: 19:25 Medical Decision Making - Medical Records Medical records reviewed: No: I reviewed the patient's medical records. - Nathan Inquiry Pt receiving controlled substance: No Vital Signs: 02/07/22 18:55 02/07/22 19:42 Temperature 99.4 F 99.4 F Temperature Source Oral Oral Pulse Rate 94 H Pulse Rate [Left Radial] 107 H Respiratory Rate 18 18 Blood Pressure 130/66 Blood Pressure [Right Arm] 132/64 Blood Pressure Mean [Right Arm] 86 Blood Pressure Source [Right Arm] Automatic Cuff Blood Pressure Position [Right Arm] Sitting 02 Sat by Pulse Oximetry 97 Oxygen Delivery Method Room Air Room Air - Lab Data Lab results reviewed: Yes: I reviewed the patient's lab results. [facility] [place] HPI - General Stated complaint: covid test,vomiting,US sore throat Time Seen by Provider: 02/07/22 19:11 - History of Present Illness Provider Complaint: She states that the she has felt bad and ran a low grade fever for the past 3 days. She tested positive for covid-19 at home today. She needs a pcr test for her employer. - Related Data Home Medications Medication Instructions Recorded Confirmed buprenorphine 8 mg-naloxone 2 mg 0.75 film SUBLINGUAL QODP each 03/17/18 01/26/22 sublingual film Previous Rx's Medication Instructions Recorded famotidine 20 mg tablet 20 mg PO DAILY #90 tab 09/01/21 estradiol 2 mg tablet See Rx Instructions .ROUTE 11/02/21 .COMPLEX #30 tab dextroamphetamine-amphetamine 20 20 mg PO BID #60 tab 01/26/22 mg tablet gabapentin 400 mg capsule 400 mg PO BID #60 cap 01/26/22 levofloxacin 500 mg tablet 500 mg PO DAILY #7 tab 01/26/22 Benzonatate [Benzonatate 100mg 100 mg PO TIDP PRN #30 cap 02/07/22 cap] Ondansetron [Zofran 4mg ODT] 4 mg PO Q8HP PRN #12 tab 02/07/22 methylPREDNISolone [Medrol] 4 mg PO DIRECTED 6 Days #21 02/07/22 packet Allergies Allergy/AdvReac Type Severity Reaction Status Date / Time sulfamethoxazole Allergy Severe I-HIVES Verified 01/26/22 10:28 [From BACTRIM] trimethoprim [From BACTRIM] Allergy Severe I-HIVES Verified 01/26/22 10:28 codeine [CODEINE] Allergy Intermediate I-HIVES Verified 01/26/22 10:28 latex [LATEX] Allergy Intermediate I-RASH Verified 01/26/22 10:28 [facility] History - Hepatitis A Screen Attestation statement:: This patient has been screened for Hepatitis A risk factors. I have reviewed the patient's past medical history: Yes Medical History: Reports:: Anxiety, Cancer, Depression Denies:: Diabetes Mellitus Type 1, Diabetes Mellitus Type 2, MRSA, Seizures Other Medical History: Reports: Other Comment: Hep-C, RLS, Hyper ADHD Other Surgeries: Yes: Appendectomy, , Hysterectomy-Total, Hysterectomy-Partial, Other Amputation: No Fractures: No Comment: 2001-
[2022-02-07 19:42] VITALS: BP 130/66; PULSE 94; RESP 18; TEMP 37.4; O2SAT 98
== END 2022-02-07 20:00 | disposition home or self-care (01) ==
PROVIDERS: Emergency Provider Nurse Practitioner Family; PCP Emergency Medicine
DX: U07.1 COVID-19 (principal)
CPT/HCPCS: 99212; C9803; G0463; U0003; U0005

== ENCOUNTER → 2022-03-27 08:08 | Outpatient (CLI) | payer SELFPAY ==
[2022-03-27 20:47] LABS: Amphetamine/Metha Screen,Urine Positive ng/ml (<1000)
[2022-03-27 20:48] LABS: Barbiturates Screen,Urine Negative ng/ml (<200)
[2022-03-27 20:49] LABS: Benzodiazepines Screen,Urine Negative ng/ml (<200); Cannabinoid Screen,Urine Negative ng/ml (<50)
[2022-03-27 20:50] LABS: Cocaine Screen,Urine Negative ng/ml (<300)
[2022-03-27 20:51] LABS: Methadone Screen,Urine Negative ng/ml (<300); Opiate Screen,Urine Negative ng/ml (<300)
[2022-03-27 20:53] LABS: Phencyclidine Screen,Urine Negative ng/ml (<25)
== END ==
PROVIDERS: PCP Emergency Medicine; Visit Provider Emergency Medicine
DX: Z79.899 Other long term (current) drug therapy (principal)
CPT/HCPCS: 80305

== ENCOUNTER → 2022-06-01 10:04 | Outpatient (CLI) | payer OTHER, SELFPAY ==
[2022-06-01 15:39] LABS: Amphetamine/Metha Screen,Urine Positive ng/ml (<1000)
[2022-06-01 15:40] LABS: Barbiturates Screen,Urine Negative ng/ml (<200); Benzodiazepines Screen,Urine Negative ng/ml (<200)
[2022-06-01 15:41] LABS: Cannabinoid Screen,Urine Negative ng/ml (<50); Cocaine Screen,Urine Negative ng/ml (<300)
[2022-06-01 15:42] LABS: Methadone Screen,Urine Negative ng/ml (<300)
[2022-06-01 15:43] LABS: Opiate Screen,Urine Negative ng/ml (<300); Phencyclidine Screen,Urine Negative ng/ml (<25)
== END ==
PROVIDERS: PCP Emergency Medicine; Visit Provider Emergency Medicine
DX: F90.9 Attention-deficit hyperactivity disorder, unspecified type (principal)
CPT/HCPCS: 80305

== ENCOUNTER → 2022-07-30 10:49 | Outpatient (CLI) | payer MEDICAID, SELFPAY ==
[2022-07-30 16:21] LABS: Amphetamine/Metha Screen,Urine Positive ng/ml (<1000)
[2022-07-30 16:22] LABS: Barbiturates Screen,Urine Negative ng/ml (<200); Benzodiazepines Screen,Urine Negative ng/ml (<200)
[2022-07-30 16:23] LABS: Cannabinoid Screen,Urine Negative ng/ml (<50)
[2022-07-30 16:24] LABS: Cocaine Screen,Urine Negative ng/ml (<300); Methadone Screen,Urine Negative ng/ml (<300)
[2022-07-30 16:25] LABS: Opiate Screen,Urine Negative ng/ml (<300)
[2022-07-30 16:26] LABS: Phencyclidine Screen,Urine Negative ng/ml (<25)
== END ==
PROVIDERS: PCP Emergency Medicine; Visit Provider Emergency Medicine
DX: M79.2 Neuralgia and neuritis, unspecified (principal)
CPT/HCPCS: 80305

== ENCOUNTER → 2022-09-26 23:00 | Outpatient (CLI) | payer MEDICAID, SELFPAY ==
[2022-09-26 19:06] LABS: Basophils % 0.8 % (0.1-2.0); Eosinophils # 0.1 K/mm3 (0.0-0.4); Eosinophils % 2.9 % (0.1-12.0); Hematocrit 42.3 % (37.0-47.0); Hemoglobin 14.1 g/dL (12.2-16.2); Lymphocytes # 1.7 K/mm3 (0.7-4.5); Lymphocytes % 52.6 % (10-50); Mean Corpuscular HGB Conc 33.4 g/dL (31.8-35.4); Mean Corpuscular Hemoglobin 30.7 pg (27.0-31.2); Mean Corpuscular Volume 91.9 fl (81-99); Monocytes # 0.2 K/mm3 (0.1-1.0); Neutrophils # 1.2 K/mm3 (1.8-7.8); Neutrophils % 36.8 % (37.0-80.0); Platelet Count 321 K/mm3 (142-424); Red Blood Count 4.61 M/mm3 (4.20-5.40); Red Cell Distribution Width 12.1 % (11.5-17.5); White Blood Count 3.3 K/mm3 (4.8-10.8)
[2022-09-26 19:12] LABS: MANUAL DIFFERENTIAL MANUAL DIFFERENTIAL (MANUAL DIFF)
[2022-09-26 21:09] LABS: Alanine Aminotransferase 58 U/L (12-78); Albumin Level 4.7 g/dl (3.5-5.0); Albumin/Globulin Ratio 1.6 (1.1-1.8); Alkaline Phosphatase 89 U/L (38-126); Aspartate Amino Transferase 56 U/L (14-36); Bilirubin,Total 0.9 mg/dl (0.2-1.3); Blood Urea Nitrogen 10 mg/dl (7-17); Carbon Dioxide 26 mmol/L (22.0-30.0); Chloride 100 mmol/L (98-107); Chol/HDL Ratio 2.1 (1-3.5); Cholesterol 174 mg/dl (140-200); Estimated Glomerular Filt Rate 112 ml/min (>60); GFR (African American) 135 ML/MIN (>60); Glucose 132 mg/dl (74-100); HDL Cholesterol 81 mg/dl (40-60); Sodium 133 mmol/L (136-145); Total Protein,Serum 7.7 g/dl (6.3-8.2); Triglycerides 48 mg/dl (30-150); VLDL Cholesterol 10 mg/dL (0-40)
[2022-09-26 21:17] LABS: Eosinophils % 2 % (0-3); Lymphocytes % 56 % (10-50); Monocytes % 5 % (2-9); Neutrophils % 36 % (42-76); Total Cells Counted 100
[2022-09-26 21:18] LABS: Platelet Estimate Normal; RBC Morphology Normal
[2022-09-26 21:20] LABS: Direct LDL Cholesterol 64.93 mg/dL (100-129)
[2022-09-26 22:21] LABS: Thyroid Stimulating Hormone 0.62 uIU/mL (0.465-4.68)
[2022-09-28 13:29] LABS: HIV Screen 4th Generation wRfx Non Reactive (Non Reactive)
[2022-09-29 02:15] LABS: ALT (SGPT) P5P 64 IU/L (0-40); Alpha 2-Macroglobulins, Qn 269 mg/dL (110-276); Apolipoprotein A-1 168 mg/dL (116-209); Bilirubin, Total 0.5 mg/dL (0.0-1.2); Fibrosis Score 0.17 (0.00-0.21); GGT 25 IU/L (0-60); Haptoglobin 120 mg/dL (33-278); Necroinflammat Activity Grade A1-Minimal activity (.); Necroinflammat Activity Score 0.33 (0.00-0.17)
[2022-09-30 00:04] LABS: HCV Genotype Charge YES; Hepatitis C Genotype 1a (.)
[2022-10-11 23:19] LABS: Hep A Ab, Total NEGATIVE; Hep B Core Ab, Total POSITIVE; Hep B Surface Ab, Qual NON REACTIVE; Hepatitis B Surface Antigen NEGATIVE; Hepatitis C Antibody REACTIVE
== END ==
PROVIDERS: PCP Nurse Practitioner Family; Visit Provider Nurse Practitioner Family
DX: R53.83 Other fatigue (principal); F90.9 Attention-deficit hyperactivity disorder, unspecified type; M79.2 Neuralgia and neuritis, unspecified; B18.2 Chronic viral hepatitis C; B19.9 Unspecified viral hepatitis without hepatic coma; B34.9 Viral infection, unspecified
CPT/HCPCS: 80053; 80061; 81596; 84443; 85007; 85025; 86703; 86704; 86706; 86708; 87340; 87380; 87522; 87902; G0432

== ENCOUNTER → 2023-05-27 07:33 | Outpatient (CLI) | payer MEDICAID, SELFPAY ==
[2023-05-27 20:04] LABS: Basophils % 0.5 % (0.1-2.0); Eosinophils # 0.1 K/mm3 (0.0-0.4); Eosinophils % 1.8 % (0.1-12.0); Hemoglobin 14.9 g/dL (12.2-16.2); Lymphocytes # 1.6 K/mm3 (0.7-4.5); Lymphocytes % 52.6 % (10-50); Mean Corpuscular HGB Conc 34.7 g/dL (31.8-35.4); Mean Corpuscular Volume 95.1 fl (81-99); Mean Platelet Volume 8.2 fl (7.4-10.4); Monocytes # 0.2 K/mm3 (0.1-1.0); Monocytes % 7.1 % (1.7-9.3); Neutrophils # 1.2 K/mm3 (1.8-7.8); Neutrophils % 38.1 % (37.0-80.0); Platelet Count 223 K/mm3 (142-424); Red Blood Count 4.52 M/mm3 (4.20-5.40); Red Cell Distribution Width 12.1 % (11.5-17.5)
[2023-05-27 20:14] LABS: MANUAL DIFFERENTIAL MANUAL DIFFERENTIAL (MANUAL DIFF)
[2023-05-27 22:25] LABS: Eosinophils % 1 % (0-3); Lymphocytes % 57 % (10-50); Monocytes % 6 % (2-9); Neutrophils % 36 % (42-76); Total Cells Counted 100
[2023-05-27 22:26] LABS: Platelet Estimate Normal; RBC Morphology Normal
[2023-05-29 14:19] LABS: Prealbumin 16 mg/dL (14-35)
== END ==
PROVIDERS: PCP Internal Medicine; Visit Provider Internal Medicine
DX: R53.83 Other fatigue (principal)
CPT/HCPCS: 84134; 85007; 85025

== ENCOUNTER → 2023-07-03 14:08 | Outpatient (CLI) | payer MEDICAID, SELFPAY ==
[2023-07-03 14:58] LABS: Basophils % 0.7 % (0.1-2.0); Eosinophils # 0.1 K/mm3 (0.0-0.4); Eosinophils % 3.1 % (0.1-12.0); Hematocrit 43.5 % (37.0-47.0); Hemoglobin 15.1 g/dL (12.2-16.2); Lymphocytes # 1.6 K/mm3 (0.7-4.5); Lymphocytes % 58.7 % (10-50); Mean Corpuscular HGB Conc 34.7 g/dL (31.8-35.4); Mean Corpuscular Hemoglobin 31.4 pg (27.0-31.2); Mean Corpuscular Volume 90.7 fl (81-99); Mean Platelet Volume 7.4 fl (7.4-10.4); Monocytes # 0.2 K/mm3 (0.1-1.0); Monocytes % 5.7 % (1.7-9.3); Neutrophils # 0.9 K/mm3 (1.8-7.8); Neutrophils % 31.8 % (37.0-80.0); Platelet Count 204 K/mm3 (142-424); Red Cell Distribution Width 12.3 % (11.5-17.5); White Blood Count 2.8 K/mm3 (4.8-10.8)
[2023-07-03 15:07] LABS: MANUAL DIFFERENTIAL MANUAL DIFFERENTIAL (MANUAL DIFF)
[2023-07-03 16:28] LABS: Vitamin B12 495 pg/mL (239-931)
[2023-07-03 21:59] LABS: Lymphocytes % 64 % (10-50); Monocytes % 2 % (2-9); Neutrophils % 31 % (42-76); Platelet Estimate Normal; RBC Morphology Normal; Total Cells Counted 100
== END ==
PROVIDERS: PCP Internal Medicine; Visit Provider Internal Medicine Medical Oncology
DX: D72.819 Decreased white blood cell count, unspecified (principal)
CPT/HCPCS: 36415; 82607; 82746; 85007; 85025

== ENCOUNTER 2023-08-01 19:26 | Outpatient (CLI) | payer MEDICAID, SELFPAY ==
[2023-08-01 22:05] LABS: Barbiturates Screen,Urine Negative ng/ml (<200); Benzodiazepines Screen,Urine Negative ng/ml (<200); Cannabinoid Screen,Urine Negative ng/ml (<50); Cocaine Screen,Urine Negative ng/ml (<300); Methadone Screen,Urine Negative ng/ml (<300); Opiate Screen,Urine Negative ng/ml (<300); Phencyclidine Screen,Urine Negative ng/ml (<25)
[2023-08-07 03:37] LABS: Amphetamine Positive (.); Amphetamine (GC/MS) >3000 ng/mL (Cutoff=500); Amphetamines Positive (.); Methamphetamine Negative (Cutoff=500)
[2023-08-07 10:34] LABS: Gabapentin,Urine Negative (.)
== END 2023-08-01 23:59 ==
LOC: LAB.DROPOF 19:26
PROVIDERS: Visit Provider Family Medicine
DX: Z79.899 Other long term (current) drug therapy (principal)
CPT/HCPCS: 80307; 80324

== ENCOUNTER 2023-09-26 21:49 | Outpatient (CLI) | payer MEDICAID, SELFPAY ==
[2023-09-26 18:42] LABS: Basophils % 0.5 % (0.1-2.0); Eosinophils # 0.1 K/mm3 (0.0-0.4); Eosinophils % 2.8 % (0.1-12.0); Hematocrit 39.4 % (37.0-47.0); Hemoglobin 12.7 g/dL (12.2-16.2); Lymphocytes # 1.2 K/mm3 (0.7-4.5); Lymphocytes % 46.9 % (10-50); Mean Corpuscular HGB Conc 32.2 g/dL (31.8-35.4); Mean Corpuscular Hemoglobin 30.9 pg (27.0-31.2); Mean Platelet Volume 8.3 fl (7.4-10.4); Monocytes # 0.3 K/mm3 (0.1-1.0); Monocytes % 10.6 % (1.7-9.3); Neutrophils % 39.1 % (37.0-80.0); Platelet Count 216 K/mm3 (142-424); Red Blood Count 4.11 M/mm3 (4.20-5.40); Red Cell Distribution Width 12.7 % (11.5-17.5); White Blood Count 2.6 K/mm3 (4.8-10.8)
[2023-09-26 19:51] LABS: Chloride 106 mmol/L (98-107); Potassium 4.1 mmoL/L (3.5-5.1); Sodium 136 mmol/L (136-145)
[2023-09-26 19:54] LABS: Alanine Aminotransferase 16 U/L (12-78); Albumin Level 3.8 g/dl (3.5-5.0); Albumin/Globulin Ratio 1.6 (1.1-1.8); Alkaline Phosphatase 86 U/L (38-126); Anion Gap 5.1 mEq/L (5-15); Aspartate Amino Transferase 29 U/L (14-36); Bilirubin,Total 0.6 mg/dl (0.2-1.3); Blood Urea Nitrogen 14 mg/dl (7-17); Carbon Dioxide 29 mmol/L (22.0-30.0); Estimated Glomerular Filt Rate 137 ml/min (>60); GFR (African American) 166 ML/MIN (>60); Globulin 2.4 g/dL (1.3-3.2); Total Protein,Serum 6.2 g/dl (6.3-8.2)
[2023-09-26 19:55] LABS: Calcium 8.9 mg/dl (8.4-10.2); Glucose 97 mg/dl (74-100)
[2023-09-28 15:51] LABS: HIV Screen 4th Generation wRfx Non Reactive (Non Reactive)
[2023-10-01 14:13] LABS: HBsAg Screen Negative (Negative); HCV Ab Reactive (Non Reactive); Hep A Ab, IGM Positive (Negative); Hep B Core Ab, IgM Negative (Negative)
== END 2023-09-26 23:59 ==
LOC: LAB.DROPOF 21:49
PROVIDERS: PCP Internal Medicine; Visit Provider Internal Medicine
DX: B18.2 Chronic viral hepatitis C (principal); R53.83 Other fatigue; Z11.4 Encounter for screening for human immunodeficiency virus [HIV]
CPT/HCPCS: 80053; 80074; 85025; 86703; G0432